=== PATIENT | male | born 1965 | race Caucasian/White ===

== ENCOUNTER → 2017-10-29 | Outpatient (CLI) | payer OTHER ==
[~2017-10-29] MED LIST: CELE-1 PO; CELE200C7; CELE200C7 PO; CETI-176 PO; FLU60SYR30 IM ONLY; FLUT16SP19 NS
[2017-10-29 09:37] LABS: PLATELET COUNT, AUTOMATED 223 K/uL (150-450)
[2017-10-29 09:55] LABS: LDL CHOLESTEROL 142 mg/dl
== END ==
LOC: LAB 09:19
PROVIDERS: ATTEND Internal Medicine
DX: Z00.00 Encounter for general adult medical examination without abnormal findings (principal); K21.9 Gastro-esophageal reflux disease without esophagitis; G47.33 Obstructive sleep apnea (adult) (pediatric); M15.0 Primary generalized (osteo)arthritis
CPT/HCPCS: 36415; 82040; 82247; 82310; 82374; 82435; 82465; 82565; 82947; 83718; 84075; 84132; 84155; 84295; 84443; 84450; 84460; 84478; 84520; 85025

== ENCOUNTER → 2018-05-09 | Outpatient (CLI) | payer OTHER ==
[2018-05-09 10:05] LABS: PLATELET COUNT, AUTOMATED 236 K/uL (150-450)
[2018-05-09 10:18] LABS: LDL CHOLESTEROL 121 mg/dl
== END ==
LOC: LAB 09:42
PROVIDERS: ATTEND Internal Medicine
DX: Z12.5 Encounter for screening for malignant neoplasm of prostate (principal); E78.5 Hyperlipidemia, unspecified; E11.3293 Type 2 diabetes mellitus with mild nonproliferative diabetic retinopathy without macular edema, bilateral; R09.02 Hypoxemia
CPT/HCPCS: 36415; 82040; 82247; 82310; 82374; 82435; 82465; 82565; 82947; 83718; 84075; 84132; 84153; 84155; 84295; 84443; 84450; 84460; 84478; 84520; 85025

== ENCOUNTER → 2019-06-02 | Outpatient (CLI) | payer OTHER ==
[2019-06-02 10:03] LABS: PLATELET COUNT, AUTOMATED 241 K/uL (150-450)
[2019-06-02 10:42] LABS: LDL CHOLESTEROL 152 mg/dl
--- NOTE | 2019-06-02 10:49 | RADIOLOGY IMAGING REPORT ---
FACILITY: [facility] [place] PATIENT NAME: Joe Luna : 1965 MR: [id number] V: [id number] EXAM DATE: [id number] ORDERING PHYSICIAN: THOMAS ABEL TECHNOLOGIST: Location: [facility] [place] Patient: Joe Luna : 1965 Visit/Account:[id number] Date of Sevice: 06/02/2019 Exam type: KNEE 3 VIEW RIGHT History: rt knee pain Comparison: None. Findings: Three views were submitted. There is very mild narrowing of the medial compartment of the right knee . No marginal osteophytes are identified. There is an area of cortical thickening and adjacent calc ification along the posterior aspect of the proximal diaphyseal metaphyseal junction of the right tib ia best seen on the lateral view. This may be related to mild calcification of the intraosseous memb ty. IMPRESSION: 1. Very mild narrowing of the medial compartment of the right knee There is an area of cortical thickening and adjacent calcification along the posterior aspect the pro ximal diaphyseal metaphyseal junction of the right tibia. This may be related to calcifications with in the intraosseous membrane. If patient's pain continues however MR is recommended Report Dictated By: Amber Lemos MD at 06/02/2019 10:36 AM Report E-Signed By: Amber Lemos MD at 06/02/2019 10:39 AM WSN:[id number]
== END ==
LOC: LAB 09:35
PROVIDERS: ATTEND Internal Medicine
DX: M19.90 Unspecified osteoarthritis, unspecified site (principal); M25.561 Pain in right knee
CPT/HCPCS: 36415; 81001; 82040; 82247; 82310; 82374; 82435; 82465; 82565; 82947; 83036; 83718; 84075; 84132; 84153; 84155; 84295; 84443; 84450; 84460; 84478; 84520; 84550; 85025